=== PATIENT | male | born 1995 | race Caucasian/White ===

== ENCOUNTER → 2018-09-21 | Day surgery (SDC) | payer OTHER ==
[2018-09-21] VITALS (9 sets, daily range): BP systolic 113–142; BP diastolic 49–87
[~2018-09-21] VITALS: Ht 177.8 cm; Wt 117.9 kg
[~2018-09-21] MED LIST: CLINDAMYCIN HC300 MG PO; MOTRIN600 MG PO; NORCO 5-325 TA1 EACH PO
== END | disposition home or self-care (01) ==
LOC: SDC 09-17 09:30
DX: L05.91 Pilonidal cyst without abscess (principal); E66.9 Obesity, unspecified; Z68.37 Body mass index [BMI] 37.0-37.9, adult; Z72.89 Other problems related to lifestyle; Z83.3 Family history of diabetes mellitus